=== PATIENT | male | born 1990 | race Caucasian/White ===

== ENCOUNTER 2016-07-16 02:33 | Emergency (ER) | payer OTHER ==
[~2016-07-16] VITALS: Ht 180.3 cm; Wt 136.1 kg
[~2016-07-16 02:33] MED LIST: FLOMAX0.4 M1 PO; PERCOCET 5-3251 EACH PO; ZOFRAN4 M2 PO
--- NOTE | 2016-07-16 02:43 | ED GI/GU/ABDOMINAL COMPLAINT ---
History of Present Illness General Chief Complaint: Nausea, Vomiting, Diarrhea Stated Complaint: ? KIDNEY STONE HX OF SAME +VOMITING Source: patient, old records Exam Limitations: no limitations Vital Signs & Intake/Output Vital Signs & Intake/Output Vital Signs Date Time Temp Pulse Resp B/P Pulse O2 O2 Flow FiO2 Ox Delivery Rate 07/16 0426 97.0 63 18 113/53 96 Room Air 07/16 0239 97.0 81 20 146/79 98 Room Air Allergies Coded Allergies: NO KNOWN ALLERGIES (03/10/16) Reconcile Medications Ondansetron (Zofran Odt) 4 MG TAB.RAPDIS 1 TAB SL TID PRN NAUSEA Ondansetron HCl (Zofran) 4 MG TABLET 1 TAB PO Q6-8P PRN nausea Oxycodone HCl/Acetaminophen (Percocet 5-325 MG Tablet) 5 MG-325 MG TABLET 1 TAB PO TID PRN pain Oxycodone HCl/Acetaminophen (Percocet 5-325 MG Tablet) 5 MG-325 MG TABLET 1-2 TAB PO Q6P PRN PAIN Tamsulosin HCl (Flomax) 0.4 MG CAP.ER.24H 1 CAP PO DAILY kidney stone Tamsulosin HCl (Flomax) 0.4 MG CAP.ER.24H 1 CAP PO DAILY KIDNEY STONE Triage Note: PT TO ED C/O RT FLANK PAIN WITH +N/V FOR 30 MINS. DX WITH 5 MM KIDNEY STONE "SAME SIDE" 2MONTHS AGO, HAD LITHOTRIPSY, IS UNSURE ABOUT PASSING STONES SINCE. Triage Nurses Notes Reviewed? yes HPI: Patient presents with right flank pain radiating to the groin that started tonight. Pain is crampy and colicky nature. Positive nausea vomiting. No aggravating or mitigating factors. Pain is 10 out of 10. Similar symptoms in the past when he has had kidney stones. Past History Medical History Any Pertinent Medical History? 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 No Review of Systems Review of Systems Constitutional: Reports: no symptoms. EENTM: Reports: no symptoms. Respiratory: Reports: no symptoms. Cardiovascular: Reports: no symptoms. GI: Reports: see HPI, abdominal pain, nausea, vomiting. Genitourinary: Reports: no symptoms. Musculoskeletal: Reports: see HPI, back pain. Skin: Reports: no symptoms. Neurological/Psychological: Reports: no symptoms. Hematologic/Endocrine: Reports: no symptoms. Immunologic/Allergic: Reports: no symptoms. All Other Systems: Reviewed and Negative Physical Exam Physical Exam General Appearance: well developed/nourished, alert, awake, anxious, moderate distress Head: atraumatic, normal appearance Eyes: Bilateral: PERRL, EOMI. Ears, Nose, Throat, Mouth: hearing grossly normal, DRY MUCOSA Neck: normal inspection, supple, full range of motion Respiratory: normal breath sounds, chest non-tender, no respiratory distress, lungs clear Cardiovascular: regular rate/rhythm, normal peripheral pulses Gastrointestinal: normal bowel sounds, soft, non-tender, no organomegaly Back: CVA tenderness (R) Extremities: normal range of motion Neurologic/Psych: no motor/sensory deficits, awake, alert, oriented x 3, normal mood/affect Skin: intact, normal color, warm/dry Core Measures ACS in differential dx? No Severe Sepsis Present: No Septic Shock Present: No Progress Differential Diagnosis: appendicitis, ureterolithiasis, urinary retention, UTI/ pyelo Plan of Care: Orders Procedure Date/time Status URINALYSIS 07/16 0241 Complete Laboratory Tests 07/16/16 0430: Urinalysis MOD H, Urine Color YEL, Urine Clarity CLDY H, Urine pH 6.0, Ur Specific [place] >= 1.030, Urine Protein 30 H, Urine Ketones NEG, Urine Nitrite NEG, Urine Bilirubin NEG@ICTO, Urine Urobilinogen 0.2, Ur Leukocyte Esterase NEG , Ur Microscopic SEDIMENT EXAMINED, Urine RBC 50-75 H, Urine WBC 5-10 H, Ur Epithelial Cells RARE, Urine Crystals RARE CA OX, Urine Bacteria FEW H, Urine Mucus MANY H, Micro UA Comment , Urine Hemoglobin LARGE H, Urine Glucose NEG Diagnostic Imaging: Viewed by Me: CT Scan. Discussed w/RAD: CT Scan. Radiology Impression: PATIENT: MIRANDA GAVIN III PRESENT AGE: 25 PATIENT ACCOUNT NO: [id number] : 91 LOCATION: [facility] ORDERING PHYSICIAN: ELI RAYO MD SERVICE DATE: 07/16/169 EXAM TYPE: CAT - CT ABD & PELVIS W/O IV CONTRAS EXAMINATION: CT ABDOMEN AND PELVIS WITHOUT CONTRAST CLINICAL INFORMATION: Right flank pain. COMPARISON: CT scan abdomen pelvis 03/07/2016 TECHNIQUE: Multidetector volumetric imaging was performed from the superior aspect of the liver through the pubic symphysis. Sagittal and coronal reformatted images were obtained on the technologist's workstation. DLP: 1476.75 mGy-cm FINDINGS: LUNG BASES: The visualized lung bases are unremarkable. LIVER, GALLBLADDER, AND BILIARY TREE: The liver is normal in size, shape, and attenuation. No focal hepatic lesion or biliary ductal dilatation is present. The gallbladder is unremarkable with no evidence of radiopaque gallstones, gallbladder wall thickening, or obvious pericholecystic inflammatory changes. PANCREAS: Unremarkable. SPLEEN: Unremarkable. ADRENAL GLANDS: Unremarkable. KIDNEYS AND URETERS: Mild hydronephrosis of the right kidney. This is due to an obstructing 3 mm stone in the proximal right ureter just distal to the ureteropelvic junction, coronal image 60. No renal calculi. BLADDER: Unremarkable. GASTROINTESTINAL TRACT: The small and large bowel are unremarkable. The appendix is unremarkable. ABDOMINAL WALL: No significant hernia is appreciated. LYMPH NODES: Normal. VASCULAR: Unremarkable. PELVIC VISCERA: Unremarkable. OSSEOUS STRUCTURES: Unremarkable. IMPRESSION: Mild hydronephrosis of right kidney due to an obstructing 3 mm stone in the proximal right ureter. DICTATED BY: CLEMENTINE LEES MD DATE/TIME DICTATED:07/16/16354 CASINO SUPERVISOR:RODRIGO DATE/TIME TRANSCRIBED:07/16/16354 CONFIDENTIAL, DO NOT COPY WITHOUT APPROPRIATE AUTHORIZATION. <Electronically signed in Other Vendor System> SIGNED BY: CLEMENTINE LEES MD 07/16/16 0402 Initial ED EKG: none Departure Departure Disposition: HOME OR SELF CARE Condition: Stable Clinical Impression Primary Impression: Kidney stones Referrals: DAVION LE,ROLF Heller (PCP/Family) ALDAIR FERRER MD Additional Instructions: DRINK PLENTY OF FLUIDS RETURN IF SYMPTOMS WORSEN OR FOR ANY CONCERNS Departure Forms: Customer Survey General Discharge Information Prescriptions: Current Visit Scripts Tamsulosin HCl (Flomax) 1 CAP PO DAILY #14 CAP Oxycodone HCl/Acetaminophen (Percocet 5-325 MG Tablet) 1-2 TAB PO Q6P PRN PAIN #20 TAB Ondansetron (Zofran Odt) 1 TAB SL TID PRN NAUSEA #10 TAB
--- NOTE | 2016-07-16 04:02 | CT SCAN REPORT ---
EXAMINATION: CT ABDOMEN AND PELVIS WITHOUT CONTRAST CLINICAL INFORMATION: Right flank pain. COMPARISON: CT scan abdomen pelvis 03/07/2016 TECHNIQUE: Multidetector volumetric imaging was performed from the superior aspect of the liver through the pubic symphysis. Sagittal and coronal reformatted images were obtained on the technologist's workstation. DLP: 1476.75 mGy-cm FINDINGS: LUNG BASES: The visualized lung bases are unremarkable. LIVER, GALLBLADDER, AND BILIARY TREE: The liver is normal in size, shape, and attenuation. No focal hepatic lesion or biliary ductal dilatation is present. The gallbladder is unremarkable with no evidence of radiopaque gallstones, gallbladder wall thickening, or obvious pericholecystic inflammatory changes. PANCREAS: Unremarkable. SPLEEN: Unremarkable. ADRENAL GLANDS: Unremarkable. KIDNEYS AND URETERS: Mild hydronephrosis of the right kidney. This is due to an obstructing 3 mm stone in the proximal right ureter just distal to the ureteropelvic junction, coronal image 60. No renal calculi. BLADDER: Unremarkable. GASTROINTESTINAL TRACT: The small and large bowel are unremarkable. The appendix is unremarkable. ABDOMINAL WALL: No significant hernia is appreciated. LYMPH NODES: Normal. VASCULAR: Unremarkable. PELVIC VISCERA: Unremarkable. OSSEOUS STRUCTURES: Unremarkable. IMPRESSION: Mild hydronephrosis of right kidney due to an obstructing 3 mm stone in the proximal right ureter.
[2016-07-16] MEDS ORDERED: ZOFRAN ODT4 M1 SL (04:07)
[2016-07-16] MEDS ORDERED: FLOMAX0.4 M1 PO (04:07)
[2016-07-16] MEDS ORDERED: PERCOCET 5-3251 EACH PO (04:07)
[2016-07-16 04:26] VITALS: BP 113/53
== END 2016-07-16 05:08 ==
LOC: ERH 02:33
DX: N20.0 Calculus of kidney (principal)
CPT/HCPCS: 74176; 81001; 96361; 96374; 96375; J1885; J2405

== ENCOUNTER 2016-08-12 22:20 | Emergency (ER) | payer OTHER ==
[~2016-08-12] VITALS: Ht 180.3 cm; Wt 136.1 kg
[~2016-08-12 22:20] MED LIST changes: +ZOFRAN ODT4 M1 SL
[2016-08-12 22:33] VITALS: BP 155/80
--- NOTE | 2016-08-12 22:47 | ED GI/GU/ABDOMINAL COMPLAINT ---
History of Present Illness General Chief Complaint: Male Genitourinary Problems Stated Complaint: "I HAVE A KIDNEY STONE" PER PT Source: patient Exam Limitations: no limitations Vital Signs & Intake/Output Vital Signs & Intake/Output Vital Signs Date Time Temp Pulse Resp B/P B/P Pulse O2 O2 Flow FiO2 Mean Ox Delivery Rate 08/12 2252 Room Air 08/12 2233 97.4 82 18 155/80 98 Room Air ED Intake and Output 08/13 0000 08/12 1200 Intake Total 1000 Output Total Balance 1000 Intake, IV 1000 Patient 300 lb Weight Weight Reported by Patient Measurement Method Allergies Coded Allergies: No Known Allergies (08/17/16) Reconcile Medications Ibuprofen 800 MG TABLET 1 TAB PO TID PRN PAIN Ondansetron (Zofran Odt) 4 MG TAB.RAPDIS 1 TAB SL TID PRN NAUSEA Oxycodone HCl/Acetaminophen (Percocet 5-325 MG Tablet) 5 MG-325 MG TABLET 1 TAB PO 4XDP PRN PAIN TEN...[id number] Tamsulosin HCl (Flomax) 0.4 MG CAP.ER.24H 1 CAP PO DAILY KIDNEY STONE Triage Note: PT TO TRIAGE WITH C/O R FLANK PAIN 10/10 STARTED 2HR VENEER TAPER, URINARY URGENCY, UNABLE TO URINATE. HX OF KIDNEY STONES. Triage Nurses Notes Reviewed? yes Onset: Abrupt Duration: hour(s): (FEW) Timing: single episode today Quality/Severity: sharpness, severe, stabbing Location: left flank Radiation: suprapubic Activities at Onset: none Prior Abdominal Problems: similar symptoms No Modifying Factors: none Associated Symptoms: abdominal pain, nausea/vomiting HPI: 25 year old male with history of renal stone presents here with chief complaint of sudden onset of severe suprapubic, right flank pain nausea and vomiting at home. He has a history of stone diagnosed 3 weeks ago that was reported to be 3 mm. He states he has not passed the stone since. Last dose of Percocet was this morning. He is due to see Dr. Kincaid. History of previous renal stone and lithotripsy. Denies nausea vomiting. States his urine does not look normal. 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 see below for history Family History Hx Contributory? No (FRANCES ANN MD) Review of Systems Review of Systems Constitutional: Denies: chills, fever. EENTM: Reports: no symptoms. Respiratory: Denies: cough. Cardiovascular: Denies: chest pain, palpitations. GI: Reports: see HPI, nausea, vomiting. Genitourinary: Reports: frequency. Denies: discharge, dysuria. Musculoskeletal: Reports: no symptoms. Skin: Reports: no symptoms. Neurological/Psychological: Reports: no symptoms. Hematologic/Endocrine: Reports: polyuria. Denies: bruising, bleeding, polydipsia. Immunologic/Allergic: Denies: splenectomy. All Other Systems: Reviewed and Negative (LAY BRITTON MD) Review of Systems Constitutional: Reports: no symptoms. EENTM: Reports: no symptoms. Respiratory: Reports: no symptoms. Cardiovascular: Reports: no symptoms. GI: Reports: no symptoms. Genitourinary: Reports: no symptoms. Musculoskeletal: Reports: no symptoms. Skin: Reports: no symptoms. Neurological/Psychological: Reports: no symptoms. Hematologic/Endocrine: Reports: no symptoms. Immunologic/Allergic: Reports: no symptoms. All Other Systems: Reviewed and Negative (FRANCES ANN MD) Physical Exam Physical Exam Peripheral Pulses: 2+ radial (R), 2+ radial (L) (LAY BRITTON MD) Physical Exam General Appearance: well developed/nourished, no apparent distress Head: atraumatic, normal appearance Eyes: Bilateral: normal appearance. Ears, Nose, Throat, Mouth: hearing grossly normal Neck: normal inspection, supple, full range of motion Respiratory: normal breath sounds, chest non-tender, no respiratory distress, quiet respiration, lungs clear Cardiovascular: regular rate/rhythm Gastrointestinal: normal bowel sounds, soft, non-tender, no organomegaly Back: normal inspection Extremities: normal range of motion Neurologic/Psych: no motor/sensory deficits, awake, alert, oriented x 3 Skin: intact, normal color, warm/dry Core Measures ACS in differential dx? No Severe Sepsis Present: No Septic Shock Present: No (MARISSA LE,FRANCES Richter) Progress Plan of Care: Orders Procedure Date/time Status URINE DRUGS OF ABUSE 08/12 2246 Complete URINALYSIS 08/12 2246 Complete COMPREHENSIVE METABOLIC PANEL 08/12 2246 Complete CBC WITHOUT DIFFERENTIAL 08/12 2246 Complete Laboratory Tests 08/13/16 0059: Urine Opiates Screen 254.00, Methadone Screen < 40, Barbiturate Screen < 60, Ur Phencyclidine Scrn < 6.00, Amphetamines Screen 175, U Benzodiazepines Scrn < 85, Urine Cocaine Screen < 50, Urine Cannabis Screen > 80.00 H, Urinalysis MOD H, Urine Color AMPARO, Urine Clarity CLEAR, Urine pH 5.5, Ur Specific [place] >= 1.030, Urine Protein NEG, Urine Ketones >=80, Urine Nitrite NEG, Urine Bilirubin NEG@ICTO, Urine Urobilinogen 0.2, Ur Leukocyte Esterase NEG, Ur Microscopic SEDIMENT EXAMINED, Urine RBC 5-10 H, Urine WBC 1-3 H, Ur Epithelial Cells FEW, Urine Crystals RARE CA OX, Urine Bacteria MOD H, Urine Mucus MOD H, Urine Hemoglobin SMALL H, Urine Glucose NEG 08/12/162246: Anion Gap 18 H, Estimated GFR > 60, BUN/Creatinine Ratio 13.3, Glucose 101 H, Calcium 9.5, Total Bilirubin 1.0, AST 34, ALT 44, Alkaline Phosphatase 63, Total Protein 7.6, Albumin 4.5, Globulin 3.1, Albumin/Globulin Ratio 1.5, CBC w Diff NO MAN DIFF REQ, RBC 5.18, MCV 88.7, MCH 29.4, RDW 14.9 H, MPV 8.4, Gran % 63.8 , Lymphocytes % 28.4, Monocytes % 6.2, Eosinophils % 1.1, Basophils % 0.5, Absolute Granulocytes 10.4 H, Absolute Lymphocytes 4.6 H, Absolute Monocytes 1.0 H, Absolute Eosinophils 0.2, Absolute Basophils 0.1, PUBS MCHC 33.2 Diagnostic Imaging: Viewed by Me: CT Scan. Discussed w/RAD: CT Scan. Initial ED EKG: none Hand-Off Endorsed To: MARISSA LE,FRANCES Richter Endorsed Time: 2300 Pending: CT, labs (TOBI LE,LAY) Differential Diagnosis: ureterolithiasis, UTI/pyelo Radiology Impression: ABD/PELVIC CT.... 3mm stone, 5 mm from UVJ... FULL REPORT BELOW. Comments: PATIENT: MIRANDA GAVIN III PRESENT AGE: 25 PATIENT ACCOUNT NO: [id number] : 91 LOCATION: [facility] ORDERING PHYSICIAN: LAY BRITTON MD SERVICE DATE: 08/12/16 EXAM TYPE: CAT - CT ABD & PELVIS W/O IV CONTRAS EXAMINATION: CT ABDOMEN AND PELVIS WITHOUT CONTRAST CLINICAL INFORMATION: Pain leukocytosis COMPARISON: 07/16/2016 TECHNIQUE: Multidetector volumetric imaging was performed from the superior aspect of the liver through the pubic symphysis. Sagittal and coronal reformatted images were obtained on the technologist's workstation. FINDINGS: Lung bases are grossly clear. Upper abdomen: Noncontrast study. Liver and spleen are grossly normal. Pancreas within normal limits. The adrenal glands are unremarkable. Bowel pattern is nonobstructive. No bulky adenopathy. There is hydronephrosis on the right. Left kidney is nonhydronephrotic. The aorta is normal in caliber. CT PELVIS: The right ureter does lead up to a 3 mm calculus. This is approximately 5 mm from the UVJ. No free fluid in the deep pelvis. IMPRESSION: Compared to previous study inferior migration of the 3 mm right renal calculus. Now approximately 5 mm from the UVJ. DICTATED BY: DIVINA PAPPAS MD DATE/TIME DICTATED:08/12/162336 RAIL GANG SUPERVISOR:RODRIGO DATE/TIME TRANSCRIBED:08/12/162336 CONFIDENTIAL, DO NOT COPY WITHOUT APPROPRIATE AUTHORIZATION. <Electronically signed in Other Vendor System> SIGNED BY: DIVINA PAPPAS MD 08/12/16 6394 (MARISSA LE,FRANCES Richter) Departure Departure Condition: Stable Referrals: ROLF RICARDO MD (PCP/Family) Departure Forms: Customer Survey General Discharge Information PA/OPAL MINER Co-Sign Statement Statement: ED Attending supervision documentation- [] I saw and evaluated the patient. I have also reviewed all the pertinent lab results and diagnostic results. I agree with the findings and the plan of care as documented in the PA's/OPAL MINER's documentation. [] I have reviewed the ED Record and agree with the PA's/OPAL MINER's documentation. [] Additions or exceptions (if any) to the PAs/OPAL MINER's note and plan are summarized below: [] (TOBI LE,LAY) Departure Disposition: HOME OR SELF CARE Clinical Impression Primary Impression: Renal colic Comments pt with 3mm stone nearly the right UVJ... he is comfortable with a u/a consistent with stone, but unlikely to be infected. He is safe and stable for discharge. He has appointment tomorrow with DR. Kincaid (urology). (MARISSA LE,FRANCES Richter) Primary Impression: Renal colic Prescriptions: Current Visit Scripts Oxycodone HCl/Acetaminophen (Percocet 5-325 MG Tablet) 1 TAB PO 4XDP PRN PAIN #16 TAB SIXTEEN...[id number] Ondansetron (Zofran Odt) 1 TAB SL TID PRN NAUSEA #10 TAB Ref 2 Comments pt with 3mm stone nearly the right UVJ... he is comfortable with a u/a consistent with stone, but unlikely to be infected. He is safe and stable for discharge. He has appointment tomorrow with DR. Kincaid (urology). (AMRISSA LE,FRANCES Richter)
[2016-08-12 22:56] LABS: ABSOLUTE BASOPHIL COUNT 0.1 /CUMM (0.0-0.2); ABSOLUTE EOSINOPHIL COUNT 0.2 /CUMM (0.0-0.7); ABSOLUTE GRANULOCYTE CT 10.4 /CUMM (1.4-6.5); ABSOLUTE LYMPH COUNT 4.6 /CUMM (1.2-3.4); BASOPHIL % 0.5 % (0.0-2.0); EOSINOPHIL % 1.1 % (0-5); GRANULOCYTE % 63.8 % (42.2-75.2); HEMATOCRIT 45.9 % (42-52); MEAN CORPUSCULAR HGB 29.4 PG (27.0-31.0); MEAN CORPUSCULAR HGB CONC 33.2 G/DL (33.0-37.0); MEAN CORPUSCULAR VOLUME 88.7 FL (80.0-94.0); MEAN PLATELET VOLUME 8.4 FL (7.4-10.4); PLATELET COUNT 290 /CUMM (130-400); RBC DISTRIBUTION WIDTH 14.9 % (11.5-14.5); RED BLOOD CELL CT 5.18 /CUMM (4.70-6.10); WHITE BLOOD CELL COUNT 16.3 /CUMM (4.8-10.8)
--- NOTE | 2016-08-12 23:43 | CT SCAN REPORT ---
EXAMINATION: CT ABDOMEN AND PELVIS WITHOUT CONTRAST CLINICAL INFORMATION: Pain leukocytosis COMPARISON: 07/16/2016 TECHNIQUE: Multidetector volumetric imaging was performed from the superior aspect of the liver through the pubic symphysis. Sagittal and coronal reformatted images were obtained on the technologist's workstation. FINDINGS: Lung bases are grossly clear. Upper abdomen: Noncontrast study. Liver and spleen are grossly normal. Pancreas within normal limits. The adrenal glands are unremarkable. Bowel pattern is nonobstructive. No bulky adenopathy. There is hydronephrosis on the right. Left kidney is nonhydronephrotic. The aorta is normal in caliber. CT PELVIS: The right ureter does lead up to a 3 mm calculus. This is approximately 5 mm from the UVJ. No free fluid in the deep pelvis. IMPRESSION: Compared to previous study inferior migration of the 3 mm right renal calculus. Now approximately 5 mm from the UVJ.
[2016-08-13] MEDS ORDERED: PERCOCET 5-3251 EACH PO (01:33)
[2016-08-13] MEDS ORDERED: ZOFRAN ODT4 M1 SL (01:33)
== END 2016-08-13 01:56 ==
LOC: ERH 22:20
PROVIDERS: Emergency Medicine
DX: N23 Unspecified renal colic (principal)
CPT/HCPCS: 74176; 80307; 81001; 96374; 96375; J1885; J2405

== ENCOUNTER 2016-08-17 00:21 | Emergency (ER) | payer OTHER ==
[~2016-08-17] VITALS: Ht 180.3 cm; Wt 136.1 kg
--- NOTE | 2016-08-17 00:38 | ED GI/GU/ABDOMINAL COMPLAINT ---
History of Present Illness General Chief Complaint: General Adult Stated Complaint: "I HAVE A KIDNEY STONE,WAS HERE X3DYS AGO SAME" Source: patient Exam Limitations: no limitations Vital Signs & Intake/Output Vital Signs & Intake/Output Vital Signs Date Time Temp Pulse Resp B/P B/P Pulse O2 O2 Flow FiO2 Mean Ox Delivery Rate 08/17 0255 82 22 125/77 97 08/17 0027 97.9 73 18 112/80 99 Room Air Allergies Coded Allergies: No Known Allergies (08/17/16) Reconcile Medications Ibuprofen 800 MG TABLET 1 TAB PO TID PRN PAIN Ondansetron (Zofran Odt) 4 MG TAB.RAPDIS 1 TAB SL TID PRN NAUSEA Oxycodone HCl/Acetaminophen (Percocet 5-325 MG Tablet) 5 MG-325 MG TABLET 1 TAB PO 4XDP PRN PAIN TEN...[id number] Tamsulosin HCl (Flomax) 0.4 MG CAP.ER.24H 1 CAP PO DAILY KIDNEY STONE Triage Note: TRIAGE: PATIENT TO ER FROM HOME REPORTING R FLANK PAIN X 3 DAYS, DX W/ KIDNEY STONE. PATIENT REPORTS +N/V INC X 2 HOURS, DENIES DIARRHEA. PATIENT AFEBRILE. Triage Nurses Notes Reviewed? yes Onset: Gradual Duration: week(s):, waxing and waning Timing: recent history Quality/Severity: cramping, sharpness Location: right flank Radiation: back Activities at Onset: "I have a kidney stone" Prior Abdominal Problems: similar symptoms Modifying Factors: Improves With: other (better w/meds). Associated Symptoms: abdominal pain, nausea/vomiting HPI: 25 yo gentleman h/o kidney stone. "I came back because I still have pain... I was supposed to see dr. sheldon but he had to cancel due to emergency surgery.... It really hurts and the stone is not moving." He notes nausea and vomiting, no fever, chills, dysuria. Past History Travel History Traveled to [place] past 21 day No Medical History Any Pertinent Medical History? 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 No Review of Systems Review of Systems Constitutional: Reports: no symptoms. EENTM: Reports: no symptoms. Respiratory: Reports: no symptoms. Cardiovascular: Reports: no symptoms. GI: Reports: no symptoms. Genitourinary: Reports: no symptoms. Musculoskeletal: Reports: no symptoms. Skin: Reports: no symptoms. Neurological/Psychological: Reports: no symptoms. Hematologic/Endocrine: Reports: no symptoms. Immunologic/Allergic: Reports: no symptoms. All Other Systems: Reviewed and Negative Physical Exam Physical Exam General Appearance: well developed/nourished, moderate distress Head: atraumatic, normal appearance Eyes: Bilateral: normal appearance. Ears, Nose, Throat, Mouth: hearing grossly normal Neck: normal inspection, supple, full range of motion Respiratory: normal breath sounds, chest non-tender, no respiratory distress, quiet respiration, lungs clear Cardiovascular: regular rate/rhythm Gastrointestinal: normal bowel sounds, soft, non-tender, no organomegaly Back: normal inspection, normal range of motion Extremities: normal range of motion Neurologic/Psych: no motor/sensory deficits, awake, alert, oriented x 3 Skin: intact, normal color, warm/dry Core Measures ACS in differential dx? No Severe Sepsis Present: No Septic Shock Present: No Progress Differential Diagnosis: ureterolithiasis, UTI/pyelo Plan of Care: Orders Procedure Date/time Status URINALYSIS 08/17 37 Complete LIPASE 08/17 37 Complete COMPREHENSIVE METABOLIC PANEL 08/17 37 Complete CBC WITHOUT DIFFERENTIAL 08/17 37 Complete Laboratory Tests 08/17/16 0110: Anion Gap 12, Estimated GFR > 60, BUN/Creatinine Ratio 9.0, Glucose 98, Calcium 9.0, Total Bilirubin 0.5, AST 25, ALT 51, Alkaline Phosphatase 53, Total Protein 6.1 L, Albumin 3.7, Globulin 2.4, Albumin/Globulin Ratio 1.5, Lipase 38, CBC w Diff NO MAN DIFF REQ, RBC 4.69 L, MCV 87.8, MCH 30.0, RDW 14.6 H, MPV 8.0, Gran % 78.8 H, Lymphocytes % 14.5 L, Monocytes % 5.7, Eosinophils % 0.6, Basophils % 0.4, Absolute Granulocytes 11.0 H, Absolute Lymphocytes 2.0, Absolute Monocytes 0.8 H, Absolute Eosinophils 0.1, Absolute Basophils 0.1, PUBS MCHC 34.1 08/17/16 0100: Urinalysis LIGHT H, Urine Color STRAW, Urine Clarity CLEAR, Urine pH 6.0, Ur Specific [place] 1.010, Urine Protein NEG, Urine Ketones 40 H, Urine Nitrite NEG, Urine Bilirubin NEG, Urine Urobilinogen 0.2, Ur Leukocyte Esterase SMALL H , Ur Microscopic SEDIMENT EXAMINED, Urine RBC 1-3, Urine WBC 1-3 H, Urine Bacteria RARE H, Urine Mucus RARE, Urine Hemoglobin MOD H, Urine Glucose NEG Diagnostic Imaging: Viewed by Me: CT Scan. Discussed w/RAD: CT Scan. Radiology Impression: abd /pelvic ct... kidney stone 5mm from uvj.. Initial ED EKG: none Comments: PATIENT: MIRANDA GAVIN III PRESENT AGE: 25 PATIENT ACCOUNT NO: [id number] : 91 LOCATION: [facility] ORDERING PHYSICIAN: LAY BRITTON MD SERVICE DATE: 08/12/16 EXAM TYPE: CAT - CT ABD & PELVIS W/O IV CONTRAS EXAMINATION: CT ABDOMEN AND PELVIS WITHOUT CONTRAST CLINICAL INFORMATION: Pain leukocytosis COMPARISON: 07/16/2016 TECHNIQUE: Multidetector volumetric imaging was performed from the superior aspect of the liver through the pubic symphysis. Sagittal and coronal reformatted images were obtained on the technologist's workstation. FINDINGS: Lung bases are grossly clear. Upper abdomen: Noncontrast study. Liver and spleen are grossly normal. Pancreas within normal limits. The adrenal glands are unremarkable. Bowel pattern is nonobstructive. No bulky adenopathy. There is hydronephrosis on the right. Left kidney is nonhydronephrotic. The aorta is normal in caliber. CT PELVIS: The right ureter does lead up to a 3 mm calculus. This is approximately 5 mm from the UVJ. No free fluid in the deep pelvis. IMPRESSION: Compared to previous study inferior migration of the 3 mm right renal calculus. Now approximately 5 mm from the UVJ. DICTATED BY: DIVINA PAPPAS MD DATE/TIME DICTATED:08/12/162336 HEALTHCARE EDUCATOR:RODRIGO DATE/TIME TRANSCRIBED:08/12/162336 CONFIDENTIAL, DO NOT COPY WITHOUT APPROPRIATE AUTHORIZATION. <Electronically signed in Other Vendor System> SIGNED BY: IDVINA PAPPAS MD 08/12/16 7047 Departure Departure Disposition: HOME OR SELF CARE Condition: Stable Clinical Impression Primary Impression: Kidney stone Referrals: DAVION LE,ROLF Heller (PCP/Family) Departure Forms: Customer Survey General Discharge Information Prescriptions: Current Visit Scripts Oxycodone HCl/Acetaminophen (Percocet 5-325 MG Tablet) 1 TAB PO 4XDP PRN PAIN #10 TAB TEN...[id number] Ibuprofen 1 TAB PO TID PRN PAIN #90 TAB Tamsulosin HCl (Flomax) 1 CAP PO DAILY #30 CAP Ondansetron (Zofran Odt) 1 TAB SL TID PRN NAUSEA #10 TAB Comments 08/17/16, 2:30am... pt feeling better and would like to go home... pt to follow up with dr. sheldon.
[2016-08-17 01:18] LABS: ABSOLUTE BASOPHIL COUNT 0.1 /CUMM (0.0-0.2); ABSOLUTE EOSINOPHIL COUNT 0.1 /CUMM (0.0-0.7); ABSOLUTE MONOCYTE COUNT 0.8 /CUMM (0.10-0.60); BASOPHIL % 0.4 % (0.0-2.0); EOSINOPHIL % 0.6 % (0-5); GRANULOCYTE % 78.8 % (42.2-75.2); HEMATOCRIT 41.2 % (42-52); MEAN CORPUSCULAR HGB CONC 34.1 G/DL (33.0-37.0); MEAN CORPUSCULAR VOLUME 87.8 FL (80.0-94.0); PLATELET COUNT 226 /CUMM (130-400); RBC DISTRIBUTION WIDTH 14.6 % (11.5-14.5); RED BLOOD CELL CT 4.69 /CUMM (4.70-6.10)
[2016-08-17] MEDS ORDERED: FLOMAX0.4 M1 PO (02:19)
[2016-08-17] MEDS ORDERED: PERCOCET 5-3251 EACH PO (02:19)
[2016-08-17] MEDS ORDERED: IBUPROFEN800 M1 PO (02:19)
[2016-08-17] MEDS ORDERED: ZOFRAN ODT4 M1 SL (02:19)
[2016-08-17 02:55] VITALS: BP 125/77
== END 2016-08-17 02:57 ==
LOC: ERH 00:21
PROVIDERS: Pediatrics
DX: N20.0 Calculus of kidney (principal)
CPT/HCPCS: 81001; 96374; 96375; J1885; J2405

== ENCOUNTER → 2016-08-25 | Day surgery (SDC) | payer OTHER ==
[~2016-08-25] MED LIST changes: +IBUPROFEN800 M1 PO
--- NOTE | 2016-08-25 13:02 | Operative Report ---
Operative/Inv Procedure Report Surgery Date: 08/25/16 Name of Procedure: right ureter eswl: fluoroscopy Pre-Operative Diagnosis: right distal ureter stone - 6mm Post-Operative Diagnosis: same Estimated Blood Loss: none Surgeon/Preparation Supervisor Freezing: ALDAIR FERRER MD Anesthesia: moderate sedation Drains: none Specimens: none Complications: none Operative/Procedure Note Note: The patient was taken to the operating room and placed on the ESWL table in supine position. With the patient awake, timeout was performed to cofirm correct identity, procedure, laterality, anesth., and other pertinent marcella- operative information. The patient's RIGHT flank was placed over the table cut -out, overlying the dome of the shockwave generator. C-arm fluroscopy, as well as renal US, was used to locate the stone, and evaluate the RIGHT kidney. The stone was clearly visible on fluoroscopy at the distal right ureter, measuring approximately 5 mm stone burden. Renal US confimred mild hydronephrosis, and no additional stone, no tumor, seen in the right kidney. After adequate anesthesia , the right ureter stone's position was optimized for Shockwave lithotrypsy using fluoroscopy with AP and oblique views. The E.S.W.L. was initiated at low power levels x 200 shocks. After noting the patient's tolerance to the shockwaves, the shock wave power level was quickly maximized. Toward the end of the procedure, the composition of the stone had changed significantly indicating the pulverization of the ureter stone. A total of 3000 shockwaves were delivered to the stone in order to achieve adequate lithotrypsy. The patient tolerated the procedure well, was awakened, and taken to recovery in satisfactory condition via stretcher. The pt. will be dischared home with pain meds, diet orders, and intructions to catch fragments with straining the urine. The patient is to have follow-up renal ultrasound and KUB in 1-2 weeks, prior to follow-up visit in my office. Discharge Disposition: Same Day Admissions CC: ALDAIR FERRER MD
== END ==
LOC: STS 07:00
DX: N20.1 Calculus of ureter (principal); E66.9 Obesity, unspecified; Z68.41 Body mass index [BMI] 40.0-44.9, adult; F17.200 Nicotine dependence, unspecified, uncomplicated
CPT/HCPCS: J2250

== ENCOUNTER 2016-10-06 18:23 | Emergency (ER) | payer OTHER ==
[~2016-10-06] VITALS: Ht 180.3 cm; Wt 122.5 kg
[2016-10-06 18:27] VITALS: BP 131/76
--- NOTE | 2016-10-06 18:59 | ED GENERAL ADULT ---
History of Present Illness General Chief Complaint: General Adult Stated Complaint: PT VISION BLURR,CAN'T MOVE HIS HANDS, Source: patient, family Exam Limitations: no limitations Vital Signs & Intake/Output Vital Signs & Intake/Output Vital Signs Date Time Temp Pulse Resp B/P B/P Pulse O2 O2 Flow FiO2 Mean Ox Delivery Rate 10/06 1827 98.0 76 16 131/76 98 Allergies Coded Allergies: No Known Allergies (08/17/16) Reconcile Medications Ibuprofen 800 MG TABLET 1 TAB PO TID PRN PAIN Ondansetron (Zofran Odt) 4 MG TAB.RAPDIS 1 TAB SL TID PRN NAUSEA Oxycodone HCl/Acetaminophen (Percocet 5-325 MG Tablet) 5 MG-325 MG TABLET 1 TAB PO 4XDP PRN PAIN TEN...[id number] Tamsulosin HCl (Flomax) 0.4 MG CAP.ER.24H 1 CAP PO DAILY KIDNEY STONE Triage Note: PT STATES ABOUT 20 MINUTES AGO HIS HANDS STARTED GOING NUMB AND THEN HIS TONGUE AND LEGS FOLLOWED. PT STATES THIS HAS NEVER HAPPEND TO HIM BEFORE. PT STATES HE WAS DRINKING A LOT OF WATER TODAY Triage Nurses Notes Reviewed? yes HPI: 25 yo M presenting with paresthesias. Patient was in the car coming home from work with his girlfriend, developed acute onset paresthesias of his bilateral hands with associated cramping of his hands, paresthesias of his tongue with some heaviness of tongue and difficulty speaking, lasted approximately 15-20 minutes, began to self resolve en route to the ED. Denies associated fevers, chills, chest pain, palpitations, short of breath, abdominal pain, nausea, vomiting, diarrhea, constipation, headaches, weakness, visual changes, or other focal neurologic symptoms. History of anxiety with panic attacks in the past, but states his bag attacks are typically different presentation than tonight. Daily marijuana use, he is marijuana approximately 2 hours prior to episode, but has been smoking the same marijuana for the last week, no similar symptoms in other individuals who used it. (BLANCHE LE,SAAD) Past History Travel History Traveled to [place] past 21 day No Medical History Any Pertinent Medical History? 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 No (SAAD MANCIA MD) Review of Systems Review of Systems Constitutional: Reports: no symptoms. EENTM: Reports: no symptoms. Respiratory: Reports: no symptoms. Cardiovascular: Reports: no symptoms. GI: Reports: no symptoms. Genitourinary: Reports: no symptoms. Musculoskeletal: Reports: no symptoms. Skin: Reports: no symptoms. Neurological/Psychological: Reports: numbness, paresthesia. Hematologic/Endocrine: Reports: no symptoms. Immunologic/Allergic: Reports: no symptoms. All Other Systems: Reviewed and Negative (SAAD MANCIA MD) Physical Exam Physical Exam General Appearance: well developed/nourished, no apparent distress, alert, awake Head: atraumatic, normal appearance Eyes: Bilateral: PERRL, EOMI. Ears, Nose, Throat: normal pharynx, normal ENT inspection Neck: normal inspection, full range of motion, no midline tenderness Respiratory: normal breath sounds, no respiratory distress, lungs clear Peripheral Pulses: 2+ radial (R), 2+ radial (L), 2+ dorsalis pedis (R), 2+ dorsalis pedis (L) Gastrointestinal: normal bowel sounds, soft, non-tender Back: normal inspection, no vertebral tenderness Neurologic/Psych: SEE BELOW Comments: Neurologic: Cranial nerves II through XII intact, visual to intact, no pronator drift, [id number] and [id number] testing normal bilaterally, strength 5 out of 5 throughout bilateral upper and lower extremities, no sensory deficits per patient, normal gait Core Measures ACS in differential dx? No CVA/TIA Diagnosis: No Severe Sepsis Present: No Septic Shock Present: No (SAAD MANCIA MD) Progress Differential Diagnoses I considered the following diagnoses in my evaluation of the patient: [Panic attack, metabolic derangement, low concern for CVA or TIA.] Plan of Care: Orders Procedure Date/time Status PHOSPHORUS 10/07 1911 Active MAGNESIUM 10/07 1911 Active CBC WITHOUT DIFFERENTIAL 10/07 1911 Active BASIC METABOLIC PANEL 10/07 1911 Active EKG 10/07 1911 Active Physician MDM: 25 yo M presenting with parasthesias of bilateral hands and tongue. VSS, neurologic exam nonfocal. DDx: Metabolic derangement, panic attack, low concern for CVA, TIA, spinal cord impingement. CBC, BMP, magnesium, phosphorus, and EKG ordered. Patient requesting discharge AGAINST MEDICAL ADVICE prior to evaluation with labs and EKG for a work emergency. On reexamination patient's symptoms remain resolved. Patient is alert, oriented, no psychiatric complaints or symptoms, capable of understanding the risks of further evaluation in the emergency department versus discharge, aware of the risks of discharge including neurologic decompensation and possibly , continues to request discharge AGAINST MEDICAL ADVICE. Discharged AMA prior to labs and EKG. (SAAD MANCIA MD) Initial ED EKG: none (SAAD MANCIA MD) Departure Departure Disposition: LEFT AGAINST MEDICAL ADVICE Condition: Stable Clinical Impression Primary Impression: Arm paresthesia, left Secondary Impressions: Arm paresthesia, right Referrals: ROLF RICARDO MD (PCP/Family) Additional Instructions: Follow up with your primary care physician. Departure Forms: Customer Survey General Discharge Information (SAAD MANCIA MD) Resident Co-Sign Statement Statement: ED Attending supervision documentation- [X] I saw and evaluated the patient. I have also reviewed all the pertinent lab results and diagnostic results. I agree with the findings and the plan of care as documented in the Resident's documentation. [X] I have reviewed the ED Record and agree with the Resident's documentation. [] Additions or exceptions (if any) to the Resident's note and plan are summarized below: [] (GIRMA LE,ELI Phillips) Critical Care Note Critical Care Note Critical Care Time: non-applicable (SAAD MANCIA MD)
== END 2016-10-06 19:51 | disposition left against medical advice (07) ==
LOC: ERH 18:23
DX: R20.2 Paresthesia of skin (principal)